=== PATIENT | male | born 1970 | race Caucasian/White ===

== ENCOUNTER 2016-07-01 13:51 | Emergency (ER) | payer MEDICAID ==
[~2016-07-01] VITALS: Ht 185.4 cm; Wt 81.6 kg
[~2016-07-01 13:51] MED LIST: NAP500T PO; NOR5T PO; TAM04C PO
[2016-07-01 17:28] LABS: Urine Bilirubin Negative (Negative); Urine Color Yellow (Yellow); Urine Glucose Normal (Normal); Urine Ketone Negative (Negative); Urine Mucus FEW (None Seen); Urine Nitrite Negative (Negative); Urine RBC 10 /hpf (0 - 3); Urine Urobilinogen Normal (Negative); Urine pH 5.5 (5.0-8.0)
[2016-07-01 17:31] LABS: Urine Blood 1+ /uL (Negative)
[2016-07-01 18:43] VITALS: BP 124/68
[2016-07-01 18:50] LABS: Basophils # (auto) 0 uL; Basophils % (auto) 0.4 % (0.0-2.0); Eosinophils # (auto) 0.3 uL; Eosinophils % (auto) 3.4 % (0.0-7.0); Hematocrit 47.8 % (41.0-53.0); Hemoglobin 15.9 g/dL (13.5-17.5); Lymphocytes # (auto) 2.2 uL; Lymphocytes % (auto) 28.9 % (10.0-50.0); Mean Corpuscular Hemoglobin 29.6 pg (28.0-32.0); Mean Corpuscular Hgb Conc. 33.4 g/dL (32.0-36.0); Mean Corpuscular Volume 88.6 fL (80.0-100.0); Mean Platelet Volume 9.4 fL (7.4-10.4); Monocytes # (auto) 0.6 uL; Monocytes % (auto) 8.4 % (0.0-12.0); Neutrophils # (auto) 4.4 uL; Neutrophils % (auto) 58.9 % (37.0-80.0); Platelet Count (auto) 205 10^3/uL (140-450); Red Cell Distribution Width 12.8 % (11.6-16.0); White Blood Cell 7.5 10^3/uL (4.4-10.8)
[2016-07-01 19:14] LABS: Albumin 4.4 g/dL (3.4-5.0); BUN/Creatinine Ratio 15.2; Bilirubin, Total 0.8 mg/dL (0.2-1.0); Calcium 9.3 mg/dL (8.5-10.1); Potassium 4.1 mmol/L (3.5-5.1); Total Protein 7.5 g/dL (6.4-8.2)
== END 2016-07-01 20:31 | disposition home or self-care (01) ==
LOC: ER 13:54
DX: N20.1 Calculus of ureter (principal); N39.0 Urinary tract infection, site not specified; Z88.5 Allergy status to narcotic agent; Z88.6 Allergy status to analgesic agent
CPT/HCPCS: 36415; 74176; 80053; 81001; 83690; 85025; 85049; 94761

== ENCOUNTER 2016-09-25 08:03 | Emergency (ER) | payer MEDICAID ==
[~2016-09-25] VITALS: Ht 185.4 cm; Wt 81.6 kg
[2016-09-25 08:17] VITALS: BP 130/99
[2016-09-25 09:39] LABS: Urine Bilirubin Negative (Negative); Urine Ca Oxalate Crystal FEW (None Seen); Urine Color Yellow (Yellow); Urine Glucose Normal (Normal); Urine Ketone Negative (Negative); Urine Mucus FEW (None Seen); Urine Nitrite Negative (Negative); Urine RBC 51 /hpf (0 - 3); Urine Squamous Epithelial Cell FEW /hpf (<5); Urine Urobilinogen Normal (Negative); Urine pH 5.5 (5.0-8.0)
[2016-09-25 10:06] LABS: Urine Blood 2+ /uL (Negative)
[2016-09-25] MEDS ORDERED: KETOROLAC TROMETH 60MG/2ML VIAL IM ONE (11:30)
== END 2016-09-25 11:46 | disposition home or self-care (01) ==
LOC: ER 08:03
DX: N20.0 Calculus of kidney (principal)
CPT/HCPCS: 76870; 81001; 96372; 99285; J1885

== ENCOUNTER 2017-07-01 12:15 | Emergency (ER) | payer MEDICAID ==
[~2017-07-01] VITALS: Ht 185.4 cm; Wt 77.1 kg
[~2017-07-01 12:15] MED LIST changes: +HYDR-4683 PO; -NOR5T PO
[2017-07-01 12:58] VITALS: BP 145/86
[2017-07-01] MEDS ORDERED: KETOROLAC TROMETH 60MG/2ML VIAL IM ONE (15:45)
[2017-07-01] MEDS ORDERED: HYDROcodone-ACET 10/325MG TAB PO ONE (15:45)
== END 2017-07-01 16:12 | disposition home or self-care (01) ==
LOC: ER 12:15
DX: N20.0 Calculus of kidney (principal); Z88.6 Allergy status to analgesic agent
CPT/HCPCS: 93005; 96372; 99283; J1885

== ENCOUNTER 2019-08-23 12:00 | Emergency (ER) | payer MEDICAID ==
[~2019-08-23] VITALS: Ht 185.4 cm; Wt 77.1 kg
[~2019-08-23 12:00] MED LIST changes: -HYDR-4683 PO; +HYDR-4833 PO
[2019-08-23 15:04] VITALS: BP 135/75
== END 2019-08-23 16:19 | disposition home or self-care (01) ==
LOC: ER 12:00
DX: J02.9 Acute pharyngitis, unspecified (principal); Z88.5 Allergy status to narcotic agent; Z88.8 Allergy status to other drugs, medicaments and biological substances
CPT/HCPCS: 71046